=== PATIENT | female | born 1955 | race African-American/Black ===

== ENCOUNTER 2025-02-28 18:50 | Emergency (ER) | payer OTHER ==
[2025-02-28 18:57] VITALS: BP 135/90; PULSE 76; RESP 20; TEMP 98; BMI 24.0
[2025-02-28] MEDS ORDERED: IBUPROFEN 400 MG TABLET (FP) PO ONE (20:07)
[2025-02-28] MEDS: IBUPROFEN 400 MG TABLET (FP) PO ONE (20:08)
== END 2025-02-28 20:23 | disposition home or self-care (01) ==
LOC: JERFT 18:50
DX: S80.811A Abrasion, right lower leg, initial encounter (principal); W10.0XXA Fall (on)(from) escalator, initial encounter
CPT/HCPCS: 73590-TC-RT-FY; 99283-25